=== PATIENT | female | born 1955 | race American Indian/Alaskan Native ===

== ENCOUNTER 2017-03-31 10:07 | Emergency (ER) | payer OTHER ==
[2017-03-31 10:08] VITALS: BMI 31.5
[2017-03-31 10:13] VITALS: RESP 18; TEMP 99.2
[2017-03-31] MEDS ORDERED: Sodium Chloride 0.9% 1,000 ML IV STA (10:29)
[2017-03-31] MEDS ORDERED: Iohexol 240 (50 ml) ONE (10:35)
--- NOTE | 2017-03-31 10:40 | ED PDOC ---
Arrival/HPI - General Chief Complaint: Back Pain Time Seen by Provider: 03/31/17 10:16 Historian: Patient - History of Present Illness Narrative History of Present Illness (Text): 03/31/17 10:20 A 61 year old female, whose past medical history includes a left partial nephrectomy, presents to the emergency department with left flank pain for the past few days. Patient reports mild radiating pain to groin. Patient notes dysuria but denies any fever, chills, headaches, chest pain, nausea, vomiting, diarrhea, or any other complaints. PMD: Dr. Mouna Brower Time/Duration: Other (few days ago) Symptom Course: Unchanged Context: Home Past Medical History - Provider Review Nursing Documentation Reviewed: Yes - Past History Past History: Non-Contributing - Infectious Disease Hx of Infectious Diseases: None - Tetanus Immunization Tetanus Immunization: Unknown - Cardiac Hx Cardiac Disorders: Yes Hx Hypertension: Yes Hx Pacemaker: No - Pulmonary Hx Respiratory Disorders: No - Neurological Hx Neurological Disorder: Yes HX Cerebrovascular Accident: Yes (tia) Hx Seizures: No Hx Transient Ischemic Attacks (TIA): Yes - HEENT Hx HEENT Disorder: No - Renal Hx 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) - Endocrine/Metabolic Hx Endocrine Disorders: Yes Hx Hypothyroidism: Yes - Hematological/Oncological Hx Blood Disorders: No Hx Cancer: No - Integumentary Hx Dermatological Disorder: No - Musculoskeletal/Rheumatological Hx Musculoskeletal Disorders: Yes Hx Back Pain: Yes Hx Falls: No - Gastrointestinal Hx Gastrointestinal Disorders: Yes Hx Gastroesophageal Reflux: Yes - Genitourinary/Gynecological Hx Genitourinary Disorders: No - Psychiatric Hx Psychophysiologic Disorder: Yes Hx Anxiety: Yes Hx Depression: No Hx Emotional Abuse: No Hx Physical Abuse: No Hx Substance Use: No - Surgical History Hx Hysterectomy: Yes (partial) Other/Comment: partial nephrectomy left side - Anesthesia Hx Anesthesia: Yes Hx Anesthesia Reactions: No Hx Malignant Hyperthermia: No - Suicidal Assessment Feels Threatened In Home Enviroment: No Family/Social History - Physician Review Nursing Documentation Reviewed: Yes Family/Social History: No Known Family HX Smoking Status: Former Smoker Hx Alcohol Use: Yes Frequency of alcohol use: Socially Hx Substance Use: No Hx Substance Use Treatment: No Allergies/Home Meds Allergies/Adverse Reactions: Allergies amoxicillin Allergy (Verified 08/06/16 13:56) RASH Home Medications: Home Meds Medication Instructions Recorded Confirmed Olmesartan Medoxomil [Benicar] 20 mg PO DAILY 05/28/12 03/31/17 Dexlansoprazole [Dexilant] 60 mg PO DAILY 11/10/13 03/31/17 Levothyroxine [Synthroid] 112 mcg PO DAILY 08/06/16 03/31/17 Rosuvastatin Calcium [Crestor] 10 mg PO DAILY 08/06/16 03/31/17 Physical Exam - Physical Exam Narrative Physical Exam (Text): - Review of Systems Constitutional: Normal. absent: Fatigue, Weight Change, Fevers Eyes: Normal ENT: Normal Respiratory: Normal absent: SOB, Cough, Sputum Cardiovascular: Normal absent: Chest pain, Palpitations, Syncope Gastrointestinal: Normal absent: Abdominal pain, Diarrhea, Nausea, Vomiting Genitourinary: (+) Dysuria absent: Hematuria, Frequency Musculoskeletal: (+) Left flank pain radiating to groin absent: Arthralgias, Neck Pain Skin: Normal Neurological: Normal absent: Focal Weakness Endocrine: Normal Hemo/Lymphatic: Normal Psychiatric: Normal - Physical exam Patient appears age appropriate, speaking full sentences without difficulty - Systems Exam Head: Present: Atraumatic, Normocephalic Pupils: Present: PERRL Extraocular Muscles: Present: EOMI Conjunctiva: Present: Normal Mouth: Present: Moist Mucous Membranes Neck: Present: Normal Range of Motion. No: MIDLINE TENDERNESS, Paraspinal Tenderness Respiratory/Chest: Present: Clear to Auscultation, Good Air Exchange. No: Respiratory Distress, Accessory Muscle Use, Tachypnic Cardiovascular: Present: Regular Rate and Rhythm, Normal S1, S2, Peripheral Pulses Present. No: Murmurs Abdomen: Present: Normal Bowel Sounds, Mild left lower quadrant tenderness to palpation No: Peritoneal Signs, Rebound, Guarding, Distention Back: Present: Normal Inspection. No: Midline Tenderness, Paraspinal Tenderness Upper Extremity: Present: Normal Inspection. No: Cyanosis, Edema Lower Extremity: Present: Normal Inspection. No: Edema Neurological: Present: GCS=15, Speech Normal, cranial nerves II through XII fully intact with no cerebellar abnormality, neuro-sensory fully intact. No focal neurological deficits. Skin: Present: Warm, Dry, Normal Color. No: Rashes Lymphatic: Present: OX3, NI, NC Psychiatric: Present: Alert, Oriented x 3, Normal Insight, Normal Concentration Vital Signs Reviewed: Yes Vital Signs Temp Pulse Resp BP Pulse Ox 03/31/17 15:32 68 18 141/68 98 03/31/17 14:19 71 18 143/71 98 03/31/17 13:07 75 18 145/74 98 03/31/17 11:57 79 18 148/79 98 03/31/17 10:13 99.2 F 83 18 152/82 H 97 Temperature: Afebrile Blood Pressure: Hypertensive Pulse: Regular Respiratory Rate: Normal Appearance: Positive for: Well-Appearing, Non-Toxic, Comfortable Pain Distress: None Mental Status: Positive for: Alert and Oriented X 3 Medical Decision Making ED Course and Treatment: 03/31/17 10:20 Impression: A 61 year old female with left flank pain and dysuria. On exam, left lower quadrant tenderness to palpation. Differential Diagnosis included but are not limited to: Renal colic vs. UTI vs. Colitis Plan: -- Abdomen/Pelvis CT -- Labs -- Toradol and IV-Fluids -- Urine Culture -- Reassess and disposition Progress Notes: Report Date : 03/31/2017 14:08:29 PROCEDURE: CT Abdomen and Pelvis with contrast Dictator : Harlan Hudson MD IMPRESSION: Findings suggestive of previous partial left nephrectomy with a 2.1 centimeter nonenhancing hypodense lesion in the mid left kidney favored to represent a seroma or cyst, however, further assessment with ultrasound and/or short-term interval follow-up with MRI with and without contrast is recommended as malignancy is not definitively excluded. 03/31/17 16:02 pt informed of the CT results and instructed to f/u with PMD and specialist outpatient pt states she will go to her specialty outpatient care center to f/u CT report provided pt in no distress states she feels comfortable being dc'd home with outpatient f/u Pt states she understands to return to the ER right away for new or worsening symptoms or for inability to f/u with PMD or specialist as instructed. Patient states that she fully agrees with and understands discharge instructions. States that she agrees with the plan and disposition. Verbalized and repeated discharge instructions and plan. I have given the patient opportunity to ask any additional questions. - Lab Interpretations Lab Results: 03/31/17 11:05 03/31/17 11:05 Lab Results 03/31/17 15:42: Urine Color Yellow, Urine Appearance Clear, Urine pH 7.0, Ur Specific [place] 1.010, Urine Protein Negative, Urine Glucose (UA) Negative, Urine Ketones Negative, Urine Blood Trace-lysed H, Urine Nitrate Negative, Urine Bilirubin Negative, Urine Urobilinogen 0.2, Ur Leukocyte Esterase Small H , Urine RBC Pending, Urine WBC Pending 03/31/17 11:05: Sodium 141, Potassium 4.1, Chloride 104, Carbon Dioxide 27, Anion Gap 14, BUN 12, Creatinine 0.8, Est GFR ( Amer) > 60, Est GFR (Non- Af Amer) > 60, Random Glucose 96, Calcium 9.7, Total Bilirubin 0.5, AST 26, ALT 29, Alkaline Phosphatase 86, Total Protein 8.0, Albumin 4.5, Globulin 3.5, Albumin/Globulin Ratio 1.3 03/31/17 11:05: PT 10.6, INR 0.98, APTT 28.6 03/31/17 11:05: WBC 4.0 L, RBC 4.52, Hgb 12.5, Hct 37.9, MCV 83.8, MCH 27.7, MCHC 33.0, RDW 15.1 H, Plt Count 208, MPV 9.9, Gran % 52.2, Lymph % (Auto) 38.5 H, Coal % (Auto) 6.5 H, Eos % (Auto) 2.5, Baso % (Auto) 0.3, Gran # 2.09, Lymph # 1.5, Coal # 0.3, Eos # 0.1, Baso # 0.01 I have reviewed the lab results: Yes - RAD Interpretation Radiology Orders: 03/31/17 10:28 ABD PELVIS PO & IV CONTRAST [CT] Stat - Medication Orders Current Medication Orders: Discontinued Medications Sodium Chloride (Sodium Chloride 0.9%) 1,000 mls @ 1,000 mls/hr IV .Q1H STA Stop: 03/31/17 11:28 Last Admin: 03/31/17 11:21 Dose: 1,000 mls/hr Iohexol (Omnipaque 240 (50 Ml)) Confirm Administered Dose 50 ml .ROUTE .STK-MED ONE Stop: 03/31/17 10:36 Iohexol (Omnipaque 350 100 Ml) Confirm Administered Dose 350 mg .ROUTE .STK-MED ONE Stop: 03/31/17 13:15 Ketorolac Tromethamine (Toradol) 15 mg IVP STAT STA Stop: 03/31/17 10:30 Last Admin: 03/31/17 11:10 Dose: 15 mg - Scribe Statement The provider has reviewed the documentation as recorded by the Alis Akhtar training under Margoth Sifuentes Provider Scribe Attestation: All medical record entries made by the Scribe were at my direction and personally dictated by me. I have reviewed the chart and agree that the record accurately reflects my personal performance of the history, physical exam, medical decision making, and the department course for this patient. I have also personally directed, reviewed, and agree with the discharge instructions and disposition. Disposition/Present on Arrival - Present on Arrival Any Indicators Present on Arrival: No History of DVT/PE: No History of Uncontrolled Diabetes: No Urinary Catheter: No History of Decub. Ulcer: No History Surgical Site Infection Following: None - Disposition Have Diagnosis and Disposition been Completed?: Yes Diagnosis: Flank pain Disposition: HOME/ ROUTINE Disposition Time: 16:05 Patient Plan: Discharge Patient Problems: Current Active Problems Problem Status Onset Flank pain Acute Condition: GOOD Discharge Instructions (ExitCare): Flank Pain (ED), Dysuria (ED) Additional Instructions: PLEASE RETURN TO THE EMERGENCY DEPARTMENT FOR NEW OR WORSENING SYMPTOMS. RETURN RIGHT AWAY IF YOU CANNOT FOLLOW UP WITH YOUR PRIMARY CARE DOCTOR, CLINIC, OR SPECIALIST IN 1-2 DAYS. Prescriptions: Nitrofurantoin Macrocrystals [Macrobid] 100 mg PO BID #10 cap Referrals: Mouna Brower MD [Primary Care Provider] - Follow up with primary Forms: [employer] (Mauritian)
[2017-03-31 11:39] LABS: BASO # 0.01 K/mm3 (0.0-2.0); BASO % 0.3 % (0.0-3.0); EOS # 0.1 (0.0-0.7); EOS % 2.5 % (1.5-5.0); GRAN # 2.09 (1.4-6.5); GRAN % 52.2 % (50.0-68.0); HEMOGLOBIN 12.5 gm/dL (12.0-16.0); LYMPH # 1.5 (1.2-3.4); LYMPH % 38.5 % (22.0-35.0); MEAN CELL VOLUME 83.8 fL (80.0-105.0); MEAN CORPUSCULAR HEMOGLOBIN 27.7 pg (25.0-35.0); MEAN PLATELET VOLUME 9.9 fl (7.0-11.0); MONO # 0.3 (0.1-0.6); MONO % 6.5 % (1.0-6.0); PLATELET COUNT 208 10^3/uL (120.0-450.0); RBC 4.52 10^6/uL (3.5-6.1); RED CELL DISTRIBUTION WIDTH 15.1 % (11.5-14.5)
[2017-03-31 11:52] LABS: ALB/GLOB RATIO 1.3 (1.1-1.8); ALBUMIN 4.5 g/dL (3.0-4.8); ALT/SGPT 29 U/L (7-56); AST/SGOT 26 U/L (15-39); BLOOD UREA NITROGEN 12 mg/dL (7-21); CALCIUM 9.7 mg/dL (8.4-10.5); GFR AFRICAN-AMERICAN > 60; GFR NON-AFRICAN AMERICAN > 60
[2017-03-31 11:58] VITALS: O2SAT 98
[2017-03-31 11:59] LABS: INR 0.98 (0.93-1.08); PARTIAL THROMBOPLASTIN TIME 28.6 Seconds (23.7-30.8); PROTHROMBIN TIME 10.6 Seconds (9.9-11.8)
[2017-03-31] MEDS ORDERED: Iohexol 350 MG/100 ML VIAL ONE (13:14)
--- NOTE | 2017-03-31 14:10 | CT ---
PROCEDURE: CT Abdomen and Pelvis with contrast HISTORY: abd pain COMPARISON: 10/14/2012. TECHNIQUE: Contrast dose: 100 cc of Omnipaque 350 Radiation dose: Total exam DLP = 1089 mGy-cm. This CT exam was performed using one or more of the following dose reduction techniques: Automated exposure control, adjustment of the mA and/or kV according to patient size, and/or use of iterative reconstruction technique. FINDINGS: LOWER THORAX: Unremarkable. LIVER: Unremarkable. No gross lesion or ductal dilatation. GALLBLADDER AND BILE DUCTS: Unremarkable. PANCREAS: Unremarkable. No gross lesion or ductal dilatation. SPLEEN: Unremarkable. ADRENALS: Unremarkable. No mass. KIDNEYS AND URETERS: Multiple surgical clips are noted in the vicinity of the left renal hilum and surrounding the upper pole and lower pole the left kidney. There is a cleft along the lateral margin of the left kidney from previous instrumentation. A 2.1 centimeter nonenhancing hypodense structures present in the interpolar region of the left kidney. This was not readily identifiable on the prior examination. VASCULATURE: Unremarkable. No aortic aneurysm. BOWEL: Unremarkable. No obstruction. No gross mural thickening. APPENDIX: Normal appendix. PERITONEUM: Unremarkable. No free fluid. No free air. LYMPH NODES: Unremarkable. No enlarged lymph nodes. BLADDER: Unremarkable. REPRODUCTIVE: Unremarkable. BONES: No acute fracture. OTHER FINDINGS: None. IMPRESSION: Findings suggestive of previous partial left nephrectomy with a 2.1 centimeter nonenhancing hypodense lesion in the mid left kidney favored to represent a seroma or cyst, however, further assessment with ultrasound and/or short-term interval follow-up with MRI with and without contrast is recommended as malignancy is not definitively excluded.
[2017-03-31 15:33] VITALS: BP 141/68; PULSE 68
[2017-03-31 15:49] LABS: URINE BILIRUBIN NEGATIVE (NEGATIVE); URINE BLOOD TRACE-LYSED (NEGATIVE); URINE GLUCOSE (UA) NEGATIVE (NEGATIVE); URINE LEUKOCYTE ESTERASE SMALL Leu/uL (NEGATIVE); URINE NITRATE NEGATIVE (NEGATIVE); URINE PROTEIN NEGATIVE mg/dL (<30 mg/dL); URINE UROBILINOGEN 0.2 E.U./dL (<1 E.U./dL)
[2017-03-31 15:50] LABS: URINE APPEARANCE CLEAR (CLEAR); URINE COLOR YELLOW (YELLOW)
[2017-03-31 16:03] LABS: URINE AMORPHOUS SEDIMENT FEW; URINE WBC 0 - 2 /hpf (0-6)
== END 2017-03-31 16:21 | disposition home or self-care (01) ==
LOC: ED 10:07
DX: R10.9 Unspecified abdominal pain (principal); I10 Essential (primary) hypertension; Z87.891 Personal history of nicotine dependence
CPT/HCPCS: 74177; 80053; 81001; 85025; 85610; 85730; 87086; 96361; 96374; 99284; J1885; J7040; Q9966; Q9967

== ENCOUNTER 2017-09-28 08:00 | Emergency (ER) | payer OTHER ==
[2017-09-28 08:01] VITALS: BMI 31.5
[2017-09-28 08:20] VITALS: TEMP 98.3
[2017-09-28] MEDS ORDERED: Oxycodone/Acetaminophen 5/325 mg Tab PO STA (08:42)
--- NOTE | 2017-09-28 08:43 | ED PDOC ---
Arrival/HPI - General Chief Complaint: Back Pain Time Seen by Provider: 09/28/17 08:41 Historian: Patient - History of Present Illness Narrative History of Present Illness (Text): 09/28/17 08:38 A 61 year old female, whose past medical history includes left partial nephrectomy, GERD, hypertension, hyperthyroidism, and herniated cervical disc ( diagnosed by neurologist years ago), whom was brought in by ambulance, presents to the emergency department complaining of necp pain radiating down left arm for 4 days. Patient reports she has experienced pain on and off for years and recently worsened. States she has had gone for pain management, rehab, and chiropractor in the past but does not do so now. Patient is uncertain if there is much numbness/tingling to left fingers. Mentions exercising as often as possible. Patient describes pain being initially 8/10, now currently 7/10. Notes also experiencing associated chest pain. Patient denies any vomiting, abdominal pain, urinary output changes, or any other complaints. Also, patient mentions taking Levothyroxine, Dexilant, and hypertension medication. PMD: Dr. Mouna Brower Neurologist: Dr. Oscar Barragan 09/28/17 11:36 pt is right hand dominate Time/Duration: < week Symptom Onset: Gradual Symptom Course: Worsening Quality: Stabbing, Throbbing Severity Level: 8, Severe Activities at Onset: Rest Context: Home Past Medical History - Provider Review Nursing Documentation Reviewed: Yes - Travel History Have you recently traveled outside [place] w/in the past 3 mons?: No - Past History Past History: Non-Contributing - Infectious Disease Hx of Infectious Diseases: None - Tetanus Immunization Tetanus Immunization: Unknown - Cardiac Hx Cardiac Disorders: Yes Hx Hypertension: Yes Hx Pacemaker: No - Pulmonary Hx Respiratory Disorders: No - Neurological Hx Neurological Disorder: Yes HX Cerebrovascular Accident: Yes (tia) Hx Seizures: No Hx Transient Ischemic Attacks (TIA): Yes - HEENT Hx HEENT Disorder: No - Renal Hx 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) - Endocrine/Metabolic Hx Endocrine Disorders: Yes Hx Hypothyroidism: Yes - Hematological/Oncological Hx Blood Disorders: No Hx Cancer: No - Integumentary Hx Dermatological Disorder: No - Musculoskeletal/Rheumatological Hx Musculoskeletal Disorders: Yes Hx Back Pain: Yes Hx Falls: No - Gastrointestinal Hx Gastrointestinal Disorders: Yes Hx Gastroesophageal Reflux: Yes - Genitourinary/Gynecological Hx Genitourinary Disorders: No - Psychiatric Hx Psychophysiologic Disorder: Yes Hx Anxiety: Yes Hx Depression: No Hx Emotional Abuse: No Hx Physical Abuse: No Hx Substance Use: No - Surgical History Hx Hysterectomy: Yes (partial) Other/Comment: partial nephrectomy left side - Anesthesia Hx Anesthesia: Yes Hx Anesthesia Reactions: No Hx Malignant Hyperthermia: No - Suicidal Assessment Feels Threatened In Home Enviroment: No Family/Social History - Physician Review Nursing Documentation Reviewed: Yes Family/Social History: No Known Family HX Smoking Status: Former Smoker Hx Alcohol Use: Yes Hx Substance Use: No Hx Substance Use Treatment: No Allergies/Home Meds Allergies/Adverse Reactions: Allergies amoxicillin Allergy (Verified 09/28/17 08:14) RASH Home Medications: Home Meds Medication Instructions Recorded Confirmed Olmesartan Medoxomil [Benicar] 20 mg PO DAILY 05/28/12 09/28/17 Levothyroxine [Synthroid] 125 mcg PO DAILY 08/06/16 09/28/17 Rosuvastatin Calcium [Crestor] 10 mg PO DAILY 08/06/16 09/28/17 Review of Systems - Physician Review All systems were reviewed & negative as marked: Yes - Review of Systems Cardiovascular: Chest Pain (associated with neck pain radiating to left arm) Gastrointestinal: absent: Abdominal Pain, Vomiting Genitourinary Female: absent: Urine Output Changes Musculoskeletal: Neck Pain (radiating down left arm) Physical Exam Vital Signs Reviewed: Yes Vital Signs Temp Pulse Resp BP Pulse Ox 09/28/17 09:05 78 18 143/90 98 09/28/17 08:15 98.3 F 80 16 145/92 H 96 Temperature: Afebrile Blood Pressure: Hypertensive Pulse: Regular Respiratory Rate: Normal Appearance: Positive for: Well-Appearing, Uncomfortable, Other (resting in bed, alert/awake, GCS = 15, oriented x 3, follows commands with ease, mild distress due to pain) Pain Distress: Mild Mental Status: Positive for: Alert and Oriented X 3 - Systems Exam Head: Present: Atraumatic, Normocephalic Pupils: Present: PERRL Extroacular Muscles: Present: EOMI Conjunctiva: Present: Normal Ears: Present: Normal Mouth: Present: Moist Mucous Membranes, Normal Teeth, Other (no drooling/stridor , no dysphonia) Pharnyx: Present: Normal Nose (External): Present: Atraumatic Nose (Internal): Present: Normal Inspection Neck: Present: Normal Range of Motion, Other (decr ROM to left due to pain; no midline tenderness, no nuchal rigidity, no meningeal signs, no step off) Respiratory/Chest: Present: Clear to Auscultation, Good Air Exchange. No: Respiratory Distress Cardiovascular: Present: Regular Rate and Rhythm, Normal S1, S2 Abdomen: Present: Other (well nourished female, no focal tenderness, no stahl' s sign, no mcburney's point tenderness, no masses/rebound/guarding/rigidity) Back: Present: Normal Inspection. No: Midline Tenderness Upper Extremity: Present: Normal Inspection, Normal ROM, NORMAL PULSES, Capillary Refill < 2s. No: Cyanosis, Edema Lower Extremity: Present: Normal Inspection, NORMAL PULSES, Normal ROM, Neurovascularly Intact, Capillary Refill < 2 s Neurological: Present: GCS=15, CN II-XII Intact, Speech Normal Skin: Present: Warm Psychiatric: Present: Alert, Oriented x 3 Medical Decision Making ED Course and Treatment: 09/28/17 08:43 Impression: 61 year old female with neck pain radiating down left arm with associated chest pain. Plan: -- EKG -- Cervical Spinal CT -- Valium -- Toradol -- Oxycodone -- Urinalysis -- Reassess and disposition Prior Visits: Notes and results from previous visits were reviewed. Patient was last seen in the emergency department on 03/31/2017 for left flank pain. Patient was d/c home. Progress Notes: 09/28/2017 10:[address] IMPRESSION: No acute fracture, spondylolysis or spnodylolisthesis. Mild reversal of normal cervical lordosis could be positional or related to muscle spasm. Dictator: Darling Llamas MD 09/28/17 11:27 pt is feeling improved pt states less painful and less spasms pt was resting prior to my re-exam pt is made aware of her medical results pt is encouraged min weight bearing pt will f/u as directed pt will be discharged home Re-evaluation Time: 11:28 Reassessment Condition: Improving,but remains with symptoms - Lab Interpretations Lab Results: Lab Results 09/28/17 09:36: Urine Color Yellow, Urine Appearance Clear, Urine pH 6.5, Ur Specific [place] 1.015, Urine Protein Negative, Urine Glucose (UA) Negative, Urine Ketones Negative, Urine Blood Small H, Urine Nitrate Negative, Urine Bilirubin Negative, Urine Urobilinogen 0.2, Ur Leukocyte Esterase Trace H, Urine RBC 0 - 2, Urine WBC 0 - 2 I have reviewed the lab results: Yes Interpretation: All labs normal - RAD Interpretation Radiology Orders: 09/28/17 08:43 CERVICAL SPINE W/O CONTRAST [CT] Stat FINDINGS: VERTEBRAE: There is mild reversal of normal cervical lordosis with mild cervical kyphosis. There is normal alignment of the cervical vertebral bodies. There is no acute fracture or spondylolisthesis. There is mild diffuse bone demineralization. The craniocervical junction is normal. The atlantoaxial joint normal. DISCS/SPINAL CANAL/NEURAL FORAMINA: There is multilevel degenerative disc disease due to a combination of disc osteophyte complexes, uncovertebral joint hypertrophy and multilevel facet arthropathy, worse at C5-6 with moderate bilateral neural foraminal stenosis, worse on the right and mild spinal canal stenosis. PARASPINAL SOFT TISSUES: The paraspinous soft tissues are normal. No prevertebral soft tissue thickening. OTHER FINDINGS: There is a calcified nodule in the right thyroid lobe. IMPRESSION: No acute fracture, spondylolysis or spondylolisthesis. Mild reversal of normal cervical lordosis could be positional or related to muscle spasm. Recreation Therapy Aide: Radiologist - EKG Interpretation EKG Interpretation (Text): 09/28/17 11:28 NSR at 70 bpm, normal axis, no ectopy, vent hypertrophy due to LVH, non- specific T wave changes, ABNL EKG; unchanged compare with old ekg 04/201609/28/17 11:31 Interpreted by ED Physician: Yes Comparison: Similar to previous EKG - Medication Orders Current Medication Orders: Discontinued Medications Diazepam (Valium) 5 mg PO ONCE ONE PRN Reason: Protocol Stop: 09/28/17 08:43 Last Admin: 09/28/17 09:33 Dose: 5 mg Ketorolac Tromethamine (Toradol) 30 mg IVP STAT STA Stop: 09/28/17 08:44 Last Admin: 09/28/17 09:33 Dose: 30 mg MAR Pain Assessment Document 09/28/17 09:33 SF (Rec: 09/28/17 09:33 [id number]) Pain Reassessment Is this a pain reassessment? Yes Sleep Is patient sleeping during reassessment? No Presence of Pain Presence of Pain Yes IVP Administration Document 09/28/17 09:33 SF (Rec: 09/28/17 09:33 SF [id number]) Charges for Administration # of IVP Administrations 1 Oxycodone/Acetaminophen (Percocet 5/325 Mg Tab) 1 tab PO STAT STA Stop: 09/28/17 08:43 Last Admin: 09/28/17 09:33 Dose: 1 tab MAR Pain Assessment Document 09/28/17 09:33 SF (Rec: 09/28/17 09:33 [id number]) Pain Reassessment Is this a pain reassessment? Yes Sleep Is patient sleeping during reassessment? No Presence of Pain Presence of Pain Yes - Scribe Statement The provider has reviewed the documentation as recorded by the Alis Morales Provider Scribe Attestation: All medical record entries made by the Scribbibi were at my direction and personally dictated by me. I have reviewed the chart and agree that the record accurately reflects my personal performance of the history, physical exam, medical decision making, and the department course for this patient. I have also personally directed, reviewed, and agree with the discharge instructions and disposition. Disposition/Present on Arrival - Present on Arrival Any Indicators Present on Arrival: No History of DVT/PE: No History of Uncontrolled Diabetes: No Urinary Catheter: No History of Decub. Ulcer: No History Surgical Site Infection Following: None - Disposition Have Diagnosis and Disposition been Completed?: Yes Diagnosis: Cervical muscle strain Disposition: HOME/ ROUTINE Disposition Time: 11:32 Patient Plan: Discharge Patient Problems: Current Active Problems Problem Status Onset Cervical muscle strain Acute Condition: GOOD Discharge Instructions (ExitCare): Cervical Strain (DC), Chest Pain (ED) Print Language: VINCENTIAN Additional Instructions: Make sure to see your doctor in 1-2 days DRINK PLENTY OF FLUIDS AVOID heavy lifting take your medications as prescribed RETURN TO ED IF worse pain, cant breath, persistent vomiting, high fever >101- 102 for hours, arm weakness, arm numbness/tingling, altered behavior, unable to urinate, heavy/persistent bleeding, passing out, chest pain, or other medical emergencies Prescriptions: diaZEpam [Valium] 5 mg PO TID #12 tab Ibuprofen [Motrin] 400 mg PO QID #30 tab oxyCODONE/Acetaminophen [Percocet 5/325 mg Tab] 1 tab PO TID #12 tab Referrals: Mouna Brower MD [Primary Care Provider] - Follow up with primary Angela Dhaliwal MD [Staff Provider] - Follow up with primary Bora Aguero MD [Staff Provider] - Follow up with primary Forms: [employer] (Armenian), WORK NOTE
[2017-09-28 09:45] VITALS: RESP 18
[2017-09-28 09:47] LABS: PH,URINE 6.5 (4.7-8.0); URINE BILIRUBIN NEGATIVE (NEGATIVE); URINE BLOOD SMALL (NEGATIVE); URINE GLUCOSE (UA) NEGATIVE (NEGATIVE); URINE LEUKOCYTE ESTERASE TRACE Leu/uL (NEGATIVE); URINE NITRATE NEGATIVE (NEGATIVE); URINE PROTEIN NEGATIVE mg/dL (<30 mg/dL); URINE UROBILINOGEN 0.2 E.U./dL (<1 E.U./dL)
[2017-09-28 09:54] LABS: URINE APPEARANCE CLEAR (CLEAR); URINE COLOR YELLOW (YELLOW)
--- NOTE | 2017-09-28 10:21 | CT ---
PROCEDURE: CT Cervical Spine without contrast HISTORY: Trauma COMPARISON: None available. TECHNIQUE: Axial computed tomography images were obtained of the cervical spine without the use of intravenous contrast. Coronal and sagittal reformatted images were created and reviewed. Radiation dose: Total exam DLP = 634.99 mGy-cm. This CT exam was performed using one or more of the following dose reduction techniques: Automated exposure control, adjustment of the mA and/or kV according to patient size, and/or use of iterative reconstruction technique. FINDINGS: VERTEBRAE: There is mild reversal of normal cervical lordosis with mild cervical kyphosis. There is normal alignment of the cervical vertebral bodies. There is no acute fracture or spondylolisthesis. There is mild diffuse bone demineralization. The craniocervical junction is normal. The atlantoaxial joint normal. DISCS/SPINAL CANAL/NEURAL FORAMINA: There is multilevel degenerative disc disease due to a combination of disc osteophyte complexes, uncovertebral joint hypertrophy and multilevel facet arthropathy, worse at C5-6 with moderate bilateral neural foraminal stenosis, worse on the right and mild spinal canal stenosis. PARASPINAL SOFT TISSUES: The paraspinous soft tissues are normal. No prevertebral soft tissue thickening. OTHER FINDINGS: There is a calcified nodule in the right thyroid lobe. IMPRESSION: No acute fracture, spondylolysis or spondylolisthesis. Mild reversal of normal cervical lordosis could be positional or related to muscle spasm.
[2017-09-28 10:25] LABS: URINE RBC 0 - 2 /hpf (0-2); URINE WBC 0 - 2 /hpf (0-6)
[2017-09-28 11:46] VITALS: BP 139/87; PULSE 75; O2SAT 99
--- NOTE | 2017-09-28 17:59 | CARD ---
APPROVED REPORT EKG Measurement Heart [id number] CT 148P54 [id number] <Conclusion> Normal sinus rhythm Possible Left atrial enlargement Left ventricular hypertrophy Nonspecific T wave abnormality Abnormal ECG
== END 2017-09-28 11:45 | disposition home or self-care (01) ==
LOC: ED 08:00
DX: S16.1XXA Strain of muscle, fascia and tendon at neck level, initial encounter (principal); X58.XXXA Exposure to other specified factors, initial encounter; Y92.9 Unspecified place or not applicable; I10 Essential (primary) hypertension; Z86.73 Personal history of transient ischemic attack (TIA), and cerebral infarction without residual deficits; Z87.891 Personal history of nicotine dependence
CPT/HCPCS: 72125; 81001; 87086; 93005; 96374; 99284; J1885

== ENCOUNTER 2018-01-20 16:20 | Emergency (ER) | payer OTHER ==
[2018-01-20 16:20] VITALS: BMI 31.5
[2018-01-20 16:29] VITALS: O2SAT 100
[2018-01-20] MEDS ORDERED: Lactated Ringer's 1,000 ML in Lactated Ringer's 1,000 ML IV STA (16:29)
[2018-01-20 17:14] LABS: BASO # 0.02 K/mm3 (0.0-2.0); BASO % 0.3 % (0.0-3.0); EOS # 0.1 (0.0-0.7); EOS % 1.2 % (1.5-5.0); GRAN # 3.87 (1.4-6.5); GRAN % 51.5 % (50.0-68.0); HEMOGLOBIN 12.6 g/dL (12.0-16.0); LYMPH # 3.1 (1.2-3.4); LYMPH % 41.4 % (22.0-35.0); MEAN CELL VOLUME 82.1 fl (80.0-105.0); MEAN CORPUSCULAR HEMOGLOBIN 27.2 pg (25.0-35.0); MEAN CORPUSCULAR HGB CONC 33.1 g/dl (31.0-37.0); MEAN PLATELET VOLUME 9.5 fl (7.0-11.0); MONO # 0.4 (0.1-0.6); MONO % 5.6 % (1.0-6.0); RBC 4.64 10^6/uL (3.5-6.1); WHITE BLOOD COUNT 7.5 10^3/ul (4.5-11.0)
[2018-01-20 17:17] LABS: ALB/GLOB RATIO 1.4 (1.1-1.8); ALBUMIN 4.7 g/dL (3.0-4.8); CALCIUM 9.8 mg/dL (8.4-10.5); GFR AFRICAN-AMERICAN > 60; GFR NON-AFRICAN AMERICAN > 60
[2018-01-20 17:26] LABS: INR 0.98 (0.93-1.08); PARTIAL THROMBOPLASTIN TIME 26.1 Seconds (25.1-36.5); PROTHROMBIN TIME 11.2 SECONDS (9.4-12.5)
--- NOTE | 2018-01-20 17:27 | ED PDOC ---
Arrival/HPI - General Historian: Patient - History of Present Illness Time/Duration: Prior to Arrival <Omar Chávez - Last Filed: 01/20/18 18:19> <Rodo López - Last Filed: 01/21/18 07:33> - General Chief Complaint: Abdominal Pain Time Seen by Provider: 01/20/18 16:21 - History of Present Illness Narrative History of Present Illness (Text): 01/20/18 17:05 Patient is a 62 F with a past history of hypothyroidism, hyperlipidemia, vaginal herpes, hypertension who presents with bilateral lower quadrant abdominal pain. Patient states the pain started about 30 minutes prior to being admitted to the Emergency department. Pain started after she had used the bathroom beginning in the pelvic region and then radiating upward with prominence among the right pper and lower quadrants. Patient states hse had never experienced pain like this before. 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) - Endocrine/Metabolic Hx Endocrine Disorders: Yes Hx Hypothyroidism: Yes - Hematological/Oncological Hx Blood Disorders: No - Integumentary Hx Dermatological Disorder: No - Musculoskeletal/Rheumatological Hx Musculoskeletal Disorders: Yes Hx Back Pain: Yes - Gastrointestinal Hx Gastrointestinal Disorders: Yes Hx Gastroesophageal Reflux: Yes - Genitourinary/Gynecological Hx Genitourinary Disorders: No - Psychiatric Hx Psychophysiologic Disorder: Yes Hx Anxiety: Yes Hx Substance Use: No - Surgical History Hx Hysterectomy: Yes (partial) Other/Comment: partial nephrectomy left side - Anesthesia Hx Anesthesia: Yes Hx Anesthesia Reactions: No Hx Malignant Hyperthermia: No - Suicidal Assessment Feels Threatened In Home Enviroment: No <Omar Chávez - Last Filed: 01/20/18 18:19> Family/Social History - Physician Review Nursing Documentation Reviewed: Yes Family/Social History: Other (mother: brain cancer, sister: lung w mets to brain , father: stroke) Smoking Status: Former Smoker Hx Alcohol Use: Yes Hx Substance Use: No Hx Substance Use Treatment: No <Omar Chávez - Last Filed: 01/20/18 18:19> Allergies/Home Meds <Omar Chávez - Last Filed: 01/20/18 18:19> <Rodo López - Last Filed: 01/21/18 07:33> Allergies/Adverse Reactions: Allergies amoxicillin Allergy (Verified 01/20/18 16:29) RASH Home Medications: Home Meds Medication Instructions Recorded Confirmed Rosuvastatin Calcium [Crestor] 10 mg PO DAILY 08/06/16 01/20/18 Aspirin [Adult Low Dose Aspirin EC] 1 tab PO DAILY 01/20/18 01/20/18 Levothyroxine [Synthroid] 125 mcg PO DAILY 01/20/18 01/20/18 Olmesartan Medoxomil [Benicar] 20 mg PO DAILY 01/20/18 01/20/18 Review of Systems - Physician Review All systems were reviewed & negative as marked: Yes - Review of Systems Constitutional: Normal. absent: Fevers Eyes: Normal ENT: Normal Respiratory: Normal. absent: SOB, Cough Cardiovascular: Normal. absent: Chest Pain, Palpitations Gastrointestinal: Abdominal Pain (b/l lower quadrant). absent: Nausea, Vomiting , Appetite Changes Genitourinary Female: absent: Dysuria, Frequency, Hematuria Musculoskeletal: absent: Back Pain Skin: Normal Neurological: absent: Headache, Dizziness Endocrine: Normal Hemo/Lymphatic: Normal Psychiatric: Normal <Omar Chávez - Last Filed: 01/20/18 18:19> Physical Exam Vital Signs Reviewed: Yes Temperature: Afebrile Blood Pressure: Normal Pulse: Regular Respiratory Rate: Normal Appearance: Positive for: Non-Toxic, Uncomfortable Pain Distress: None Mental Status: Positive for: Alert and Oriented X 3 - Systems Exam Head: Present: Atraumatic, Normocephalic Pupils: Present: PERRL Extroacular Muscles: Present: EOMI Conjunctiva: Present: Normal Mouth: Present: Moist Mucous Membranes Neck: Present: Normal Range of Motion Respiratory/Chest: Present: Clear to Auscultation, Good Air Exchange. No: Wheezes, Rhonchi Cardiovascular: Present: Regular Rate and Rhythm, Normal S1, S2 Abdomen: Present: Tenderness, Normal Bowel Sounds. No: Distention Upper Extremity: Present: Normal Inspection. No: Edema Lower Extremity: Present: Normal Inspection. No: Edema Neurological: Present: GCS=15, CN II-XII Intact, Speech Normal Skin: Present: Warm, Normal Color Psychiatric: Present: Alert, Oriented x 3, Normal Insight, Normal Concentration <Omar Chávez - Last Filed: 01/20/18 18:19> Vital Signs Temp Pulse Resp BP Pulse Ox 01/20/18 18:47 97.8 F 77 17 138/78 100 01/20/18 18:45 97.8 F 77 17 138/78 100 01/20/18 16:20 97.7 F 80 18 150/88 100 Medical Decision Making Re-evaluation Time: 18:25 Reassessment Condition: Re-examined, Improved - Lab Interpretations Interpretation: All labs normal - RAD Interpretation Mass Spectrometry Manager: Radiologist <Omar Chávez - Last Filed: 01/20/18 18:19> <Rodo López - Last Filed: 01/21/18 07:33> ED Course and Treatment: 01/20/18 18:24 CBC CMP Urinalysis negative, CT abdomen reveals constipation. Will provide patient with a bowel regimen and instruct to f/u with PMD Dr. Brower (Omar Chávez) 01/20/18 18:45 CT Abdomen and Pelvis without intravenous contrast: Creator : Irvin Garcia MD COMPARISON: 03/31/2017. CT abdomen and pelvis TECHNIQUE: Unenhanced study. Neither oral nor intravenous contrast administered. Sensitivity and specificity for acute inflammatory processes limited by the absence of oral and intravenous contrast. Radiation dose: Total exam DLP = 1st 975.56 mGy-cm. This CT exam was performed using one or more of the following dose reduction techniques: Automated exposure control, adjustment of the mA and/or kV according to patient size, and/or use of iterative reconstruction technique. FINDINGS: LOWER THORAX: Unremarkable. LIVER: Unremarkable. No gross lesion or ductal dilatation. GALLBLADDER AND BILE DUCTS: Unremarkable. PANCREAS: Unremarkable. No gross lesion or ductal dilatation. SPLEEN: Unremarkable. ADRENALS: Unremarkable. No mass. KIDNEYS AND URETERS: Right kidney: Unremarkable. No hydronephrosis. No solid mass. Left kidney: Stable postoperative changes. Focal area of increased attenuation relative to the remainder of the kidney corresponds to findings on prior contrast-enhanced CT scan. VASCULATURE: Unremarkable. No aortic aneurysm. BOWEL: Constipation without fecal impaction or obstruction. APPENDIX: Unremarkable. Normal appendix. PERITONEUM: Unremarkable. No free fluid. No free air. LYMPH NODES: Unremarkable. No enlarged lymph nodes. BLADDER: Unremarkable. REPRODUCTIVE: Unremarkable. BONES: No acute fracture. OTHER FINDINGS: None. IMPRESSION: No acute findings related to/accounting for the clinical presentation. No significant interval change compared to the prior examination(s). Additional benign and/or incidental findings described above. Limitations of the current examination: Absence of oral and intravenous contrast in an individual presenting with abdominal pain. Patient Seen With Resident: In agreement with resident note which contains more details about the patient. Patient was seen and evaluated with resident. Came up with plan and treatment together. (Rodo López) - Lab Interpretations Lab Results: 01/20/18 16:30 01/20/18 16:30 Lab Results 01/20/18 16:30: Sodium 145, Potassium 4.3, Chloride 107, Carbon Dioxide 26, Anion Gap 16, BUN 15, Creatinine 0.9, Est GFR ( Amer) > 60, Est GFR (Non- Af Amer) > 60, Random Glucose 108, Calcium 9.8, Total Bilirubin 0.4, AST 24, ALT 27, Alkaline Phosphatase 89, Total Protein 8.1, Albumin 4.7, Globulin 3.4, Albumin/Globulin Ratio 1.4 01/20/18 16:30: Urine Color Yellow, Urine Appearance Clear, Urine pH 6.5, Ur Specific [place] 1.010, Urine Protein Negative, Urine Glucose (UA) Negative, Urine Ketones Negative, Urine Blood Small H, Urine Nitrate Negative, Urine Bilirubin Negative, Urine Urobilinogen 0.2, Ur Leukocyte Esterase Negative, Urine RBC 1 - 3, Urine WBC 0 - 2, Ur Epithelial Cells 1 - 3 01/20/18 16:30: PT 11.2, INR 0.98, APTT 26.1 01/20/18 16:30: WBC 7.5 D, RBC 4.64, Hgb 12.6, Hct 38.1, MCV 82.1, MCH 27.2, MCHC 33.1, RDW 15.0 H, Plt Count 235, MPV 9.5, Gran % 51.5, Lymph % (Auto) 41.4 H, Mcdonald % (Auto) 5.6, Eos % (Auto) 1.2 L, Baso % (Auto) 0.3, Gran # 3.87, Lymph # (Auto) 3.1, Mcdonald # (Auto) 0.4, Eos # (Auto) 0.1, Baso # (Auto) 0.02 - RAD Interpretation Radiology Orders: 01/20/18 16:55 ABD & PELVIS W/O PO OR IV CONT [CT] Stat - Medication Orders Current Medication Orders: Discontinued Medications Lactated Ringer's 1,000 ml/ (Lactated Ringer's) 2,000 mls @ 1,000 mls/hr IV BOLUS STA Stop: 01/20/18 17:58 Last Admin: 01/20/18 16:48 Dose: 1,000 mls/hr eMAR Start Stop Document 01/20/18 16:48 [facility] (Rec: 01/20/18 16:49 [facility] [id number]) Intravenous Solution Start Date 01/20/18 Start Time 16:48 End Date 01/20/18 End time 17:50 Total Infusion Time 62 Ketorolac Tromethamine (Toradol) 30 mg IVP STAT STA Stop: 01/20/18 16:56 Last Admin: 01/20/18 17:00 Dose: 30 mg MAR Pain Assessment Document 01/20/18 17:00 [facility] (Rec: 01/20/18 17:01 [facility] [id number]) Pain Reassessment Is this a pain reassessment? No Sleep Is patient sleeping during reassessment? No Presence of Pain Presence of Pain Yes Pain Scale Used Pain Scale Used Numeric Location Pain Location Body Site Abdomen Description Intensity of Pain at present 10 IVP Administration Document 01/20/18 17:00 [facility] (Rec: 01/20/18 17:01 [facility] [id number]) Charges for Administration # of IVP Administrations 1 Tamsulosin HCl (Flomax) 0.4 mg PO STAT STA Stop: 01/20/18 16:58 Last Admin: 01/20/18 17:00 Dose: 0.4 mg - PA / SAF[employer]Y DEPOSIT [employer]OXES CUSTODIAN / Resident Statement / has reviewed & agrees with the documentation as recorded. <Maribel,I'Rossy - Last Filed: 01/21/18 07:33> Disposition/Present on Arrival - Present on Arrival Any Indicators Present on Arrival: No History of DVT/PE: No History of Uncontrolled Diabetes: No Urinary Catheter: No History of Decub. Ulcer: No History Surgical Site Infection Following: None - Disposition Have Diagnosis and Disposition been Completed?: Yes Disposition Time: 18:25 Patient Plan: Discharge <Omar ChávezSrikanth - Last Filed: 01/20/18 18:19> <Rodo López - Last Filed: 01/21/18 07:33> - Disposition Diagnosis: Constipation Disposition: HOME/ ROUTINE Condition: GOOD Discharge Instructions (ExitCare): Constipation in Adults Additional Instructions: Srikanth Kasie, thank you for letting us take care of you today. The emergency medical care you received today was directed at your acute symptoms. If you were prescribed any medication, please fill it and take as directed. It may take several days for your symptoms to resolve. Return to the Emergency Department if your symptoms worsen, do not improve, or if you have any other problems. Please contact your doctor or call one of the physicians/clinics you have been referred to that are listed on the Patient Visit Information form that is included in your discharge packet. Bring any paperwork you were given at discharge with you along with any medications you are taking to your follow up visit. Our treatment cannot replace ongoing medical care by a primary care provider (PCP) outside of the emergency department. Thank you for allowing the [facility] team to be part of your care today. Be sure to follow a diet as we discussed: rich in green leafy vegetables, brown rice, oatmeal, foods that contain a great amount of fiber. Prescriptions: Polyethylene Glycol 3350 [Miralax] 17 gm PO DAILY #7 ml Psyllium [Hydrocil Instant] 1 each PO DAILY #7 packet Sennosides [Senna] 8.6 mg PO ACHS #7 tablet Referrals: Mouna Brower MD [Primary Care Provider] - Follow up with primary Forms: [employer] ([place])
[2018-01-20 17:31] LABS: ALT/SGPT 27 U/L (7-56); AST/SGOT 24 U/L (14-36); BLOOD UREA NITROGEN 15 mg/dL (7-21)
--- NOTE | 2018-01-20 17:46 | CT ---
PROCEDURE: CT Abdomen and Pelvis without intravenous contrast HISTORY: Lower abdominal pain COMPARISON: 03/31/2017. CT abdomen and pelvis TECHNIQUE: Unenhanced study. Neither oral nor intravenous contrast administered. Sensitivity and specificity for acute inflammatory processes limited by the absence of oral and intravenous contrast. Radiation dose: Total exam DLP = 1st 975.56 mGy-cm. This CT exam was performed using one or more of the following dose reduction techniques: Automated exposure control, adjustment of the mA and/or kV according to patient size, and/or use of iterative reconstruction technique. FINDINGS: LOWER THORAX: Unremarkable. LIVER: Unremarkable. No gross lesion or ductal dilatation. GALLBLADDER AND BILE DUCTS: Unremarkable. PANCREAS: Unremarkable. No gross lesion or ductal dilatation. SPLEEN: Unremarkable. ADRENALS: Unremarkable. No mass. KIDNEYS AND URETERS: Right kidney: Unremarkable. No hydronephrosis. No solid mass. Left kidney: Stable postoperative changes. Focal area of increased attenuation relative to the remainder of the kidney corresponds to findings on prior contrast-enhanced CT scan. VASCULATURE: Unremarkable. No aortic aneurysm. BOWEL: Constipation without fecal impaction or obstruction. APPENDIX: Unremarkable. Normal appendix. PERITONEUM: Unremarkable. No free fluid. No free air. LYMPH NODES: Unremarkable. No enlarged lymph nodes. BLADDER: Unremarkable. REPRODUCTIVE: Unremarkable. BONES: No acute fracture. OTHER FINDINGS: None. IMPRESSION: No acute findings related to/accounting for the clinical presentation. No significant interval change compared to the prior examination(s). Additional benign and/or incidental findings described above. Limitations of the current examination: Absence of oral and intravenous contrast in an individual presenting with abdominal pain.
[2018-01-20 17:56] LABS: PH,URINE 6.5 (4.7-8.0); URINE BILIRUBIN NEGATIVE (NEGATIVE); URINE BLOOD SMALL (NEGATIVE); URINE GLUCOSE (UA) NEGATIVE (NEGATIVE); URINE LEUKOCYTE ESTERASE NEGATIVE Leu/uL (NEGATIVE); URINE PROTEIN NEGATIVE mg/dL (<30 mg/dL); URINE UROBILINOGEN 0.2 E.U./dL (<1 E.U./dL)
[2018-01-20 18:03] LABS: URINE APPEARANCE CLEAR (CLEAR); URINE COLOR YELLOW (YELLOW)
[2018-01-20 18:12] LABS: URINE WBC 0 - 2 /hpf (0-6)
[2018-01-20 18:46] VITALS: BP 138/78; PULSE 77; RESP 17; TEMP 97.8
== END 2018-01-20 18:48 | disposition home or self-care (01) ==
LOC: ED 16:20
DX: K59.00 Constipation, unspecified (principal); I10 Essential (primary) hypertension; E78.5 Hyperlipidemia, unspecified; K21.9 Gastro-esophageal reflux disease without esophagitis; E03.9 Hypothyroidism, unspecified; Z87.891 Personal history of nicotine dependence
CPT/HCPCS: 74176; 80053; 81001; 85025; 85610; 85730; 87086; 96361; 96374; 99283; J1885; J7120

== ENCOUNTER 2018-09-27 22:16 | Emergency (ER) | payer OTHER ==
[2018-09-27 22:17] VITALS: BMI 31.5
[2018-09-27 23:12] VITALS: RESP 18; O2SAT 100
--- NOTE | 2018-09-27 23:21 | ED PDOC ---
Arrival/HPI - General Chief Complaint: GI Problem Time Seen by Provider: 09/27/18 22:55 Historian: Patient - History of Present Illness Narrative History of Present Illness (Text): 09/27/18 23:05 62 year old female, whose past medical history includes left partial nephrectomy, GERD, hypertension, hyperthyroidism, presents to the emergency department complaining of 2 episodes of vomiting and diarrhea. Patient reports for lunch she was eating at her cafeteria at work and had a chicken quesadilla with guacamole. Patient reports the meal was spicier than expected, but kept eating anyway, but half way through she began feeling nauseous, but ate the rest anyway since she paid for it. She reported several hours later she had 2 episodes of vomiting and 2 episodes of diarrhea. Patient is able to tolerate PO because she took pepto bismol and drank a lot of water. Patient denies any fever, chills, chest pain, shortness of breath, abdominal pain, urinary symptoms, back pain, neck pain, headache, dizziness, or any other complaints. PMD: Dr. 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) - Endocrine/Metabolic Hx Endocrine Disorders: Yes Hx Hypothyroidism: Yes - Hematological/Oncological Hx Blood Disorders: No - Integumentary Hx Dermatological Disorder: No - Musculoskeletal/Rheumatological Hx Musculoskeletal Disorders: Yes Hx Back Pain: Yes - Gastrointestinal Hx Gastrointestinal Disorders: Yes Hx Gastroesophageal Reflux: Yes - Genitourinary/Gynecological Hx Genitourinary Disorders: No - Psychiatric Hx Psychophysiologic Disorder: Yes Hx Anxiety: Yes Hx Substance Use: No - Surgical History Hx Hysterectomy: Yes (partial) Other/Comment: partial nephrectomy left side - Anesthesia Hx Anesthesia: Yes Hx Anesthesia Reactions: No Hx Malignant Hyperthermia: No - Suicidal Assessment Feels Threatened In Home Enviroment: No Family/Social History - Physician Review Nursing Documentation Reviewed: Yes Family/Social History: No Known Family HX Smoking Status: Former Smoker Hx Alcohol Use: Yes Hx Substance Use: No Hx Substance Use Treatment: No Allergies/Home Meds Allergies/Adverse Reactions: Allergies amoxicillin Allergy (Verified 09/27/18 22:44) RASH Home Medications: Home Meds Medication Instructions Recorded Confirmed Rosuvastatin Calcium [Crestor] 10 mg PO DAILY 08/06/16 09/27/18 Levothyroxine [Synthroid] 125 mcg PO DAILY 01/20/18 09/27/18 Olmesartan Medoxomil [Benicar] 20 mg PO DAILY 01/20/18 09/27/18 Dexlansoprazole [Dexilant] 60 mg PO DAILY 09/27/18 09/27/18 Omeprazole Magnesium [Prilosec Otc] 40 mg PO DAILY 09/27/18 09/27/18 Review of Systems - Physician Review All systems were reviewed & negative as marked: Yes - Review of Systems Constitutional: absent: Fevers Eyes: absent: Other (chills) Respiratory: absent: SOB Cardiovascular: absent: Chest Pain Gastrointestinal: Diarrhea, Nausea, Vomiting. absent: Abdominal Pain Genitourinary Female: absent: Dysuria, Frequency, Hematuria Musculoskeletal: absent: Back Pain, Neck Pain Neurological: absent: Headache, Dizziness Physical Exam Vital Signs Reviewed: Yes Temperature: Febrile Blood Pressure: Normal Pulse: Tachycardic Respiratory Rate: Normal Appearance: Positive for: Well-Appearing, Non-Toxic, Comfortable Pain Distress: None Mental Status: Positive for: Alert and Oriented X 3 - Systems Exam Head: Present: Atraumatic, Normocephalic Pupils: Present: PERRL Extroacular Muscles: Present: EOMI Conjunctiva: Present: Normal Mouth: Present: Moist Mucous Membranes Neck: Present: Normal Range of Motion Respiratory/Chest: Present: Clear to Auscultation, Good Air Exchange. No: Respiratory Distress, Accessory Muscle Use Cardiovascular: Present: Regular Rate and Rhythm, Normal S1, S2. No: Murmurs Abdomen: No: Tenderness, Distention, Peritoneal Signs Back: Present: Normal Inspection Upper Extremity: Present: Normal Inspection. No: Cyanosis, Edema Lower Extremity: Present: Normal Inspection. No: Edema Neurological: Present: GCS=15, CN II-XII Intact, Speech Normal Skin: Present: Warm, Dry, Normal Color. No: Rashes Psychiatric: Present: Alert, Oriented x 3, Normal Insight, Normal Concentration Medical Decision Making ED Course and Treatment: 09/27/18 23:05 Impression: 62 year old female presents complaining of nausea, vomiting x2 and diarrhea x 2 several hours after eating a chicken quesadilla and guacamole. Prior Visits: Notes and results from previous visits were reviewed. Progress Notes: Patient given tylenol PO for fever and pain. However she soon began vomiting, so IV established. 1L NS bolus and zofran ivp given. Labs done and were unremarkable. On re-eval patient states that she feels much better and is ready to go home. Rx written for zofran. Advised tylenol/motrin as needed for pain. Return to the ED for any new or worsening symptoms. HR and temp normalized at discharge. - Scribe Statement The provider has reviewed the documentation as recorded by the Joselineibe Teo Franco Provider Scribe Attestation: All medical record entries made by the Scribe were at my direction and personally dictated by me. I have reviewed the chart and agree that the record accurately reflects my personal performance of the history, physical exam, medical decision making, and the department course for this patient. I have also personally directed, reviewed, and agree with the discharge instructions and disposition. Disposition/Present on Arrival - Present on Arrival Any Indicators Present on Arrival: No History of DVT/PE: No History of Uncontrolled Diabetes: No Urinary Catheter: No History of Decub. Ulcer: No History Surgical Site Infection Following: None - Disposition Have Diagnosis and Disposition been Completed?: Yes Diagnosis: Food poisoning Disposition: HOME/ ROUTINE Disposition Time: 01:20 Condition: STABLE Discharge Instructions (ExitCare): Food Poisoning (DC) Additional Instructions: CLAIRE KLELER, thank you for letting us take care of you today. Your provider was Yu Maldonado MD and you were treated for NAUSEA, DIARRHEA AND FEVER. The emergency medical care you received today was directed at your acute symptoms. If you were prescribed any medication, please fill it and take as directed. It may take several days for your symptoms to resolve. Return to the Emergency Department if your symptoms worsen, do not improve, or if you have any other problems. Please contact your doctor or call one of the physicians/clinics you have been referred to that are listed on the Patient Visit Information form that is included in your discharge packet. Bring any paperwork you were given at discharge with you along with any medications you are taking to your follow up visit. Our treatment cannot replace ongoing medical care by a primary care provider outside of the emergency department. Thank you for allowing the [facility] team to be part of your care today. If you had an X-Ray or CT scan: A Radiologist will review the ED reading if any change in treatment is needed we will contact you. If you had a blood, urine, or wound culture: It will take several days for the results, if any change in treatment is needed we will contact you. If you had an STI test: It will take 48 hours for the results. Please call after 1 week if you have not heard back. Prescriptions: Ondansetron ODT [Zofran ODT] 4 mg PO Q8H PRN #9 odt PRN Reason: Nausea/Vomiting Referrals: Mouna Brower MD [Primary Care Provider] - Follow up with primary Forms: [employer] (Malaysian)
[2018-09-28] MEDS ORDERED: Sodium Chloride 0.9% 1,000 ML IV STA (00:07)
[2018-09-28 00:33] LABS: ALB/GLOB RATIO 1.4 (1.1-1.8); ALBUMIN 4.9 g/dL (3.0-4.8); ALT/SGPT 29 U/L (7-56); AST/SGOT 22 U/L (14-36); BASO # 0.01 K/mm3 (0.0-2.0); BASO % 0.1 % (0.0-3.0); BLOOD UREA NITROGEN 19 mg/dL (7-21); CALCIUM 9.4 mg/dL (8.4-10.5); EOS % 0.5 % (1.5-5.0); GFR NON-AFRICAN AMERICAN > 60; GRAN # 7.64 (1.4-6.5); GRAN % 91.5 % (50.0-68.0); HEMOGLOBIN 13.3 g/dL (12.0-16.0); LYMPH # 0.6 (1.2-3.4); LYMPH % 6.9 % (22.0-35.0); MEAN CELL VOLUME 84.1 fl (80.0-105.0); MEAN CORPUSCULAR HEMOGLOBIN 27.5 pg (25.0-35.0); MEAN CORPUSCULAR HGB CONC 32.8 g/dl (31.0-37.0); MEAN PLATELET VOLUME 9.1 fl (7.0-11.0); MONO # 0.1 (0.1-0.6); PLATELET COUNT 238 10^3/uL (120.0-450.0); RBC 4.83 10^6/uL (3.5-6.1); RED CELL DISTRIBUTION WIDTH 15.4 % (11.5-14.5); WHITE BLOOD COUNT 8.4 10^3/uL (4.5-11.0)
[2018-09-28 01:40] VITALS: BP 132/78; PULSE 98; TEMP 98.7
[2018-09-28 01:40] LABS: BAND 3 % (0-2); LYMPHOCYTE 14 % (22.0-35.0); MONOCYTE 6 % (1.0-6.0); NEUTROPHIL 77 % (50.0-70.0); PLATELET ESTIMATE NORMAL (NORMAL)
== END 2018-09-28 01:40 | disposition home or self-care (01) ==
LOC: ED 22:16
DX: T62.91XA Toxic effect of unspecified noxious substance eaten as food, accidental (unintentional), initial encounter (principal); R19.7 Diarrhea, unspecified; R11.2 Nausea with vomiting, unspecified; I10 Essential (primary) hypertension; E05.90 Thyrotoxicosis, unspecified without thyrotoxic crisis or storm; Z87.891 Personal history of nicotine dependence
CPT/HCPCS: 80053; 85025; 96374; 99284; J2405; J7030